=== PATIENT | male | born 1970 | race Caucasian/White ===

== ENCOUNTER 2017-05-14 15:26 | Outpatient (CLI) | payer OTHER ==
[~2017-05-14 15:26] MED LIST: EPIN0.3A3 IM; HYDR25TA4 PO; IBUP-1986 PO
== END 2017-05-14 23:59 | disposition home or self-care (01) ==
LOC: 64 CT 15:26
PROVIDERS: ATTEND Nurse Practitioner Family
DX: R31.9 Hematuria, unspecified (principal)
CPT/HCPCS: 74176

== ENCOUNTER 2019-09-28 12:36 | Emergency (ER) | payer OTHER ==
[~2019-09-28] VITALS: Ht 193 cm; Wt 215.9 kg
--- NOTE | 2019-09-28 13:17 | NUR ---
LAB AND XR AT BEDSIDE. ON ASSESSMENT, PT REPORTS THAT HE HAS BEEN DEALING WITH ANXIETY RECENTLY AND [facility] MD STOPPED PRESCRIBED PRN ATIVAN AND SUGGESTED HE SEE A PSYCH IN ORDER TO CONTINUE TO GET ATIVAN. PT REPORTS THAT HE KEEPS GETTING "DIZZY AND IT FEELS LIKE A PANIC ATTACK".
[2019-09-28 13:25] LABS: BASOPHILS % (AUTO) 0.5 % (0-1); EOSINOPHILS # (AUTO) 0.2 X10'3 (0-0.9); EOSINOPHILS % (AUTO) 1.8 % (0-6); HEMATOCRIT 42.1 % (42.0-52.0); HEMOGLOBIN 14.3 g/dl (14.0-17.9); LYMPHOCYTES # (AUTO) 1.2 X10'3 (1.1-4.8); LYMPHOCYTES % (AUTO) 13.4 % (21-51); MEAN CORPUSCULAR HEMOGLOBIN 28.1 PG (27.0-31.0); MEAN CORPUSCULAR HGB CONC 33.8 g/dL (33.0-36.5); MEAN PLATELET VOLUME 7.4 FL (7.4-10.4); MONOCYTES # (AUTO) 0.7 X10'3 (0-0.9); MONOCYTES % (AUTO) 7.8 % (2-12); NEUTROPHILS # (AUTO) 6.7 X10'3 (1.8-7.7); NEUTROPHILS % (AUTO) 76.5 % (42-75); PLATELET COUNT 280 X10'3 (140-440); RED BLOOD COUNT 5.08 X10'6 (4.70-6.10); RED CELL DISTRIBUTION WIDTH 14.5 % (11.5-14.5); WHITE BLOOD COUNT 8.8 X10'3 (4.5-11.0)
[2019-09-28] MEDS ORDERED: LORazepam 1 MG tablet PO ONE ×2 (13:25→14:25)
[2019-09-28 13:40] LABS: ALANINE AMINOTRANSFERASE 41 U/L (12-78); ALBUMIN 3.4 G/DL (3.4-5.0); ALBUMIN/GLOBULIN RATIO 0.7 (1.1-1.5); ALKALINE PHOSPHATASE 122 IU/L (46-116); ANION GAP 4 (8-16); ASPARTATE AMINO TRANSFERASE 15 U/L (10-37); BILIRUBIN,TOTAL 0.4 MG/DL (0.1-1.0); BLOOD UREA NITROGEN 16 MG/DL (7-18); BUN/CREATININE RATIO 13.9 (5.4-32.0); CALCIUM 9.1 MG/DL (8.5-10.1); CHLORIDE 105 MMOL/L (99-107); CREATININE 1.15 MG/DL (0.60-1.10); GLUCOSE 100 MG/DL (70-104); POTASSIUM 3.7 MMOL/L (3.5-5.1); SODIUM 139 MMOL/L (135-145); TOTAL CARBON DIOXIDE 30.1 MMOL/L (24-32); TOTAL PROTEIN 8.2 G/DL (6.4-8.2); eGFR 67 ML/MIN
[2019-09-28] MEDS ORDERED: normal saline 1000ml 1,000 ML IV ONE (14:55)
[2019-09-28] MEDS ORDERED: CEPH250T PO (16:48)
[2019-09-28 17:04] VITALS: BP 149/91
== END 2019-09-28 17:06 | disposition home or self-care (01) ==
LOC: ER 12:37
DX: R42 Dizziness and giddiness (principal); F41.9 Anxiety disorder, unspecified; I10 Essential (primary) hypertension; G47.30 Sleep apnea, unspecified; M79.602 Pain in left arm
CPT/HCPCS: 36415; 71045; 80053; 84484; 85025; 93005; 96360; 99285; J7030

== ENCOUNTER 2019-11-10 10:16 | Emergency (ER) | payer OTHER ==
[~2019-11-10] VITALS: Ht 193 cm; Wt 211.0 kg
[2019-11-10 10:23] VITALS: BP 179/92
[2019-11-10 11:15] LABS: BASOPHILS % (AUTO) 0.5 % (0-1); EOSINOPHILS # (AUTO) 0.2 X10'3 (0-0.9); EOSINOPHILS % (AUTO) 2.3 % (0-6); HEMATOCRIT 41.4 % (42.0-52.0); HEMOGLOBIN 13.8 g/dl (14.0-17.9); LYMPHOCYTES # (AUTO) 1.1 X10'3 (1.1-4.8); LYMPHOCYTES % (AUTO) 15.3 % (21-51); MEAN CORPUSCULAR HEMOGLOBIN 27.7 PG (27.0-31.0); MEAN CORPUSCULAR HGB CONC 33.2 g/dL (33.0-36.5); MEAN CORPUSCULAR VOLUME 83.3 FL (78-98); MEAN PLATELET VOLUME 7.2 FL (7.4-10.4); MONOCYTES # (AUTO) 0.7 X10'3 (0-0.9); MONOCYTES % (AUTO) 10.5 % (2-12); NEUTROPHILS % (AUTO) 71.4 % (42-75); PLATELET COUNT 263 X10'3 (140-440); RED BLOOD COUNT 4.97 X10'6 (4.70-6.10); RED CELL DISTRIBUTION WIDTH 14.7 % (11.5-14.5); WHITE BLOOD COUNT 7.1 X10'3 (4.5-11.0)
[2019-11-10 11:29] LABS: ALANINE AMINOTRANSFERASE 22 U/L (12-78); ALBUMIN 3.4 G/DL (3.4-5.0); ALBUMIN/GLOBULIN RATIO 0.7 (1.1-1.5); ALKALINE PHOSPHATASE 107 IU/L (46-116); ANION GAP 9 (8-16); ASPARTATE AMINO TRANSFERASE 22 U/L (10-37); BILIRUBIN,TOTAL 0.4 MG/DL (0.1-1.0); BLOOD UREA NITROGEN 13 MG/DL (7-18); BUN/CREATININE RATIO 14.4 (5.4-32.0); CALCIUM 8.9 MG/DL (8.5-10.1); CHLORIDE 105 MMOL/L (99-107); GLUCOSE 98 MG/DL (70-104); SODIUM 141 MMOL/L (135-145); TOTAL CARBON DIOXIDE 27.3 MMOL/L (24-32); TOTAL PROTEIN 8.2 G/DL (6.4-8.2); eGFR 89 ML/MIN
== END 2019-11-10 11:56 | disposition home or self-care (01) ==
LOC: ER 10:17
DX: I49.1 Atrial premature depolarization (principal); R00.2 Palpitations; I10 Essential (primary) hypertension; G47.30 Sleep apnea, unspecified
CPT/HCPCS: 36415; 71045; 80053; 84484; 85025; 93005; 99285

== ENCOUNTER 2020-01-27 11:37 | Emergency (ER) | payer OTHER ==
[~2020-01-27] VITALS: Ht 193 cm; Wt 213.0 kg
[2020-01-27 11:40] VITALS: BP 167/97
== END 2020-01-27 12:54 | disposition home or self-care (01) ==
LOC: ER 11:38
DX: R05 Cough (principal); E66.9 Obesity, unspecified; I10 Essential (primary) hypertension; Z87.442 Personal history of urinary calculi; Z91.018 Allergy to other foods; Z79.899 Other long term (current) drug therapy
CPT/HCPCS: 71045; 99283

== ENCOUNTER 2020-05-31 12:53 | Emergency (ER) | payer OTHER ==
[~2020-05-31] VITALS: Ht 193 cm; Wt 218.2 kg
[2020-05-31] MEDS ORDERED: LORazepam 0.5 MG tablet PO PRN (13:45)
--- NOTE | 2020-05-31 13:50 | NUR ---
PATIENT HERE AFTER DESCRIBING WHAT SOUNDS LIKE AN ANXIETY ATTACK: TYSON CAME TO THE HOSPITAL FOR HIGH BLOOD PRESSURE: BP TO BE NOTED PATIENT TOOK AN ATIVAN 0.5MG PRIOR TO ARRIVAL
[2020-05-31 15:00] VITALS: BP 133/89
== END 2020-05-31 14:50 | disposition home or self-care (01) ==
LOC: ER 12:54
DX: F41.0 Panic disorder [episodic paroxysmal anxiety] (principal); R42 Dizziness and giddiness; I10 Essential (primary) hypertension; G47.30 Sleep apnea, unspecified; Z87.440 Personal history of urinary (tract) infections; Z87.01 Personal history of pneumonia (recurrent); Z79.899 Other long term (current) drug therapy; Z91.018 Allergy to other foods
CPT/HCPCS: 93005; 99283

== ENCOUNTER 2023-07-13 19:38 | Emergency (ER) | payer OTHER ==
[~2023-07-13] VITALS: Ht 170.2 cm; Wt 200.0 kg
[2023-07-13 19:45] VITALS: TEMP 97.2
[2023-07-13] MEDS: normal saline 1000ML IV soln IVB ONE (21:40)
[2023-07-13 21:52] LABS: BASOPHILS % (AUTO) 0.4 % (0-1); EOSINOPHILS # (AUTO) 0.1 X10'3 (0-0.9); EOSINOPHILS % (AUTO) 0.7 % (0-6); HEMATOCRIT 42.1 % (42.0-52.0); HEMOGLOBIN 14.3 g/dl (14.0-17.9); LYMPHOCYTES # (AUTO) 0.5 X10'3 (1.1-4.8); MEAN CORPUSCULAR HEMOGLOBIN 28.4 PG (27.0-31.0); MEAN CORPUSCULAR HGB CONC 33.9 g/dL (33.0-36.5); MEAN CORPUSCULAR VOLUME 83.6 FL (78-98); MEAN PLATELET VOLUME 7.2 FL (7.4-10.4); MONOCYTES # (AUTO) 0.4 X10'3 (0-0.9); MONOCYTES % (AUTO) 5.6 % (2-12); NEUTROPHILS # (AUTO) 6.9 X10'3 (1.8-7.7); NEUTROPHILS % (AUTO) 87.3 % (42-75); PLATELET COUNT 265 X10'3 (140-440); RED BLOOD COUNT 5.04 X10'6 (4.70-6.10); RED CELL DISTRIBUTION WIDTH 14.9 % (11.5-14.5)
[2023-07-13 22:05] LABS: ALBUMIN 2.8 G/DL (3.4-5.0); ANION GAP 9 (8-16); BLOOD UREA NITROGEN 17 MG/DL (7-18); CALCIUM 8.3 MG/DL (8.5-10.1); CHLORIDE 103 MMOL/L (99-107); CREATININE 1.06 MG/DL (0.60-1.10); GLUCOSE 109 MG/DL (70-104); LIPASE 36 U/L (16-77); POTASSIUM 3.7 MMOL/L (3.5-5.1); SODIUM 140 MMOL/L (135-145); TOTAL CARBON DIOXIDE 28.4 MMOL/L (24-32); eCRCL 74 ML/MIN; eGFR 73 ML/MIN
[2023-07-13] MEDS ORDERED: iohexol 300mg/ml 100ml inj. ONE (23:29)
[2023-07-13 23:37] LABS: BILIRUBIN,URINE NEGATIVE (Neg); CLARITY,URINE CLEAR (Clear); COLOR,URINE YELLOW (Yellow); GLUCOSE, URINE NEGATIVE (Neg); KETONES,URINE NEGATIVE (Neg); LEUKOCYTE ESTERASE ,URINE NEGATIVE (Neg); NITRITES, URINE NEGATIVE (Neg); OCCULT BLOOD,URINE NEGATIVE (Neg); PROTEIN,URINE NEGATIVE (Neg); UA COLLECTION TYPE URINAL
[2023-07-14] MEDS ORDERED: ONDA8TAB13 PO (02:42)
[2023-07-14] MEDS ORDERED: LOPE2CAP PO (02:42)
[2023-07-14] MEDS: loperamide 2mg capsule PO ONE (02:47)
[2023-07-14 02:48] VITALS: BP 134/87; PULSE 112; RESP 22; O2SAT 95
== END 2023-07-14 02:53 | disposition home or self-care (01) ==
LOC: ER 19:39
DX: R55 Syncope and collapse (principal); K52.9 Noninfective gastroenteritis and colitis, unspecified; I10 Essential (primary) hypertension; G47.30 Sleep apnea, unspecified; Z91.018 Allergy to other foods
CPT/HCPCS: 36415; 71045; 74177; 80048; 81003; 83690; 84484; 85025; 96360; 99285; J7030; Q9967